=== PATIENT | female | born 1990 | race Two or more races ===

== ENCOUNTER → 2018-11-30 | Day surgery (SDC) | payer OTHER ==
[~2018-11-30] VITALS: Ht 156.2 cm; Wt 61.2 kg
[~2018-11-30] MED LIST: ACETAMINOPHEN 500 MG TABLET PO ONE; BUPIVACAINE-EPI 0.25%-1:200000 MPF 30 ML VIAL. ONE; DEXAMETHASONE SOD PHOS 4 MG/ML VIAL ONE; GLYCOPYRROLATE 1 MG/5 ML VIAL. ONE; HYDROmorphone 2 MG/ML VIAL IV PRN; INDOCYANINE GREEN 25 MG VIAL. IVP ONE; IV RINGERS,LACTATED 1000ML 1,000 ML IV SCH; KETOROLAC 30 MG/ML INJ FOR OR. INJ ONE; LIDOCAINE 1% PF 2 ML VIAL. ID PRN; LIDOCAINE 2% PF 5 ML VIAL. ONE; MIDAZOLAM HCL/PF 2 MG/2 ML VIAL. ONE; MORPHINE SULFATE 2 MG/ML VIAL. IV PRN; NEOSTIGMINE METHYLSULFATE 5 MG/5 ML SYRINGE. ONE; ONDANSETRON PF 4 MG/2 ML VIAL. IV PRN; ONDANSETRON PF 4 MG/2 ML VIAL. ONE; OXYC1TAB15 PO; PROCHLORPERAZINE 10 MG/2 ML VIAL. IV PRN; PROPOFOL 20 ML IV ONE; ROCURONIUM 50 MG/5 ML VIAL. ONE; SEVOFLURANE 31 TO 60 MINUTES. IH ONE; SEVOFLURANE 61 TO 120 MINUTES. IH ONE; SURGICEL HEMOSTAT 4X8 EACH. ONE; fentaNYL PF VIAL 100 MCG/2 ML VIAL IV PRN; fentaNYL PF VIAL 100 MCG/2 ML VIAL ONE; oxyCODONE/APAP 5/325 1 TAB TABLET PO ONE
[2018-11-30 08:43] LABS: U PREG PATIENT NEGATIVE (NEG)
--- NOTE | 2018-11-30 10:27 | PDOC4 ---
Operative Note Operative Note Date: 11/30/2018 Preoperative diagnosis: Chronic cholecystitis cholelithiasis Postoperative diagnosis: Same Procedure: Robotic-assisted laparoscopic cholecystectomy Surgeon: Real Specimen: Gallbladder Dictation: Patient is a 28-year-old female is been having right upper quadrant abdominal pain after giving to her child ultrasound shows gallstones procedure of robotic-assisted laparoscopic cholecystectomy was explained to the patient detail risk benefits were also discussed including bleeding infection injury to intra-abdominal contents possibly necessitating further or open operations alternatives to this procedure also discussed with patient who seemed to understand gave both verbal and written consent to have the procedure performed. Patient was taken to the operating room placed in supine position general anesthesia was initiated once patient was sleep and intubated her abdomen was prepped and draped usual sterile fashion using ChloraPrep and area just below the umbilicus was injected with quarter percent Marcaine with epinephrine 11 blade was used to make an incision and a varies needle was placed within the abdomen creating pneumoperitoneum once this complete 11 mm port was placed and the da Shantell camera was placed within the abdomen which was inspected no other abdomen maladies were noted. 8mm da Shantell port was placed under direct visualization one in the mid right abdomen one in the mid left abdomen. The dementia robot was brought in and docked all port sites surgeon went to the robotic console using pro-grasp and electrocautery the adherent tissues of the triangle were taken down exposing the cystic duct and cystic artery the cystic artery is clipped with hemo-lock clipped and transected the cystic duct was then clipped with a hemo-lock clip and transected the gallbladder was taken off the liver with hook electrocautery. Right upper quadrant was irrigated and suctioned dry hemostasis to be appropriate at that point surgeon return to the operative field the robot was undocked from all port sites grasper was used to grasp the gallbladder placed within Endo Catch bag and removed from the umbilicus all ports removed the fascial defect at the umbilicus closed [id number] 0 Vicryl suture and skin was approximate all port sites for septic or Monocryl Mastisol Steri-Strips and island dressings were applied. Patient was awakened and extubated in the operating room taken to recovery in stable condition all sponge instrument needle counts listed as correct estimated blood loss 10 mL ABIGAIL JONES MD Nov 30, 2018 10:27
--- NOTE | 2018-11-30 10:29 | DISCH ---
DISCHARGE INSTRUCTIONS Condition on Discharge Condition on Discharge: Stable Activity After Discharge Activity Instructions for Disc: Avoid exertion Other activity instructions: no lifting more than 20 pounds for 2 weeks Diet after Discharge Diet after Discharge: Low Fat Wound Incision Care Other wound/incision instructi: May shower in 24 hours Contacting the after DC Call your doctor for: If your condition worsens Follow-Up Follow up with: Dr. Jones in 2 weeks ABIGAIL JONES MD Nov 30, 2018 10:29
[2018-11-30 11:25] VITALS: BP 104/61
--- NOTE | 2018-12-03 17:07 | PATHOLOGY ---
[facility] Accession Number: [id number] . 01 Material submitted: . gallbladder - GALLBLADDER . 02 Diagnosis: Gallbladder, robotic laparoscopic cholecystectomy: - Cholelithiasis. - Chronic cholecystitis. - Reactive changes of gallbladder neck lymph node. . (JPM:mm; 12/03/2018) [facility]/12/03/2018 . 02 Comment: There is no evidence of malignancy. . (JPM:mm; 12/03/2018) . 02 Electronically signed: . Kamaljit Cedeño MD, Pathologist NPI- [id number] . 01 Gross description: . The specimen is received in formalin, labeled "Tremble, Lane, gallbladder", is an intact, distended gallbladder measuring 10.0 cm in length and 2.5 cm in maximum diameter with a glistening, smooth and purple meyers serosa. A 0.8 x 0.6 x 0.5 cm soft lymph node is identified in the region of the gallbladder neck. The cystic duct is impacted by calculi and is dilated. The gallbladder lumen contains scant bile and is filled with yellow-brown multifaceted calculi and its fragments measuring 5.0 x 4.5 x 1.0 cm in aggregate. The mucosa is meyers-brown with several effaced areas and no cholesterolosis. The wall is 0.1 cm in average thickness. Scanning Clerk tissue is submitted in A1. ([facility]; 11/30/2018) [facility] . 02 Pathologist provided ICD-10: K80.10 . 02 CPT . 312688 Specimen Comment: A courtesy copy of this report has been sent to Specimen Comment: [phone]. Specimen Comment: Report sent to Performed at: [address], [place], [place] [id number] MD Augusto Oh MD Phone: [phone] Performed at: [address] [id number] MD Kamaljit Cedeño MD Phone: [phone]
== END ==
LOC: SURG 07:46
PROVIDERS: ATTEND Surgery
DX: K80.10 Calculus of gallbladder with chronic cholecystitis without obstruction (principal); Z98.51 Tubal ligation status; Z72.89 Other problems related to lifestyle
CPT/HCPCS: 47562; 81025; 88304; A7015; J0690; J1100; J1885; J2001; J2250; J2405; J2704; J2710; J3010; J3490; J7030